=== PATIENT | male | born 1965 | race Caucasian/White ===

== ENCOUNTER 2020-02-26 09:20 | Inpatient (IN) | payer OTHER, SELFPAY ==
[~2020-02-26] VITALS: Ht 172.7 cm; Wt 121.6 kg
[2020-02-26] VITALS (33 sets, daily range): BP systolic 95–140; BP diastolic 46–86
[~2020-02-26 09:20] MED LIST: ASPI-1822 PO; BENA10TA25 PO; CARB200C7 PO; CARB200T1 PO; LAMO150T PO; PAX10 PO; PRAV20TA2 PO; QUET300T1 PO; THE PO; TOP100 PO; VITAMIN D PO
--- NOTE | 2020-02-26 09:22 | NUR ---
PT [facility] TO ER BED 11
--- NOTE | 2020-02-26 09:23 | NUR ---
DR. MCNEILL EVALUATING PT AT BEDSIDE. PER DR. MCNEILL, MOVE PT TO BED 10. PER EMS, PT SATURATES 89% RA. EMS INSERTED RIGHT NPA AND STARTED 6L O2. PT SATURATING 95% AT THIS TIME ON 6L O2.
--- NOTE | 2020-02-26 09:23 | NUR ---
PT MOVED TO ER BED 10
--- NOTE | 2020-02-26 09:30 | NUR ---
PT BIBA ALOC. PT HAD A SEIZURE SINCE YESTERDAY. HAS BEEN ALOC UNKNOWN TIME YESTERDAY. NO VISIBLE TRAUMA. BOARD AND CARE GAVE SEIZURE MEDS YESTERDAY UNKNOWN AMOUNT. PT IS DIFFICULT TO AOURSE BUT WITHDRAWS TO PAIN. PRESENTED WITH URINARY INCONTENICE. BRUSING AND SWELLING TO LT FOOT. WARM TO TOUCH. PMHX: SEIZURES, CKD, HLD, HTN, INTELLECTUAL DISABILITY NKA, NKDA
[2020-02-26] MEDS ORDERED: ACET-2619 PO (09:32)
[2020-02-26] MEDS ORDERED: QUET200T PO (09:32)
[2020-02-26] MEDS ORDERED: VITA1TAB44 PO (09:32)
[2020-02-26] MEDS ORDERED: TRAZ-343 PO (09:32)
[2020-02-26] MEDS ORDERED: CYAN100T65 PO (09:32)
[2020-02-26] MEDS ORDERED: FENO145T PO (09:32)
--- NOTE | 2020-02-26 09:37 | NUR ---
AMBULATORY SERVICE REPRESENTATIVE AT BEDSIDE FOR BLOOD DRAW.
--- NOTE | 2020-02-26 09:38 | NUR ---
URINE VIA STRAIGHT CATH AND COVID SWAB VIA METAL TANK ERECTOR COLLECTED BY MARISEL WRIGHT RN AND HANDED TO ASSEMBLY HAND AT BEDSIDE
--- NOTE | 2020-02-26 09:43 | NUR ---
RT AT BEDSIDE FOR ABG
--- NOTE | 2020-02-26 09:45 | NUR ---
NOTIFIED DR. MCNEILL OF HR. RECEIVED ORDERS FOR 1L NS. NO DIALYSIS CATH OR SHUNTS SEEN.
[2020-02-26] MEDS ORDERED: NACL 0.9% 1,000 ML IV ONE ×3 (09:50→10:20)
[2020-02-26 09:55] LABS: APPEARANCE,URINE HAZY (CLEAR); BILIRUBIN,URINE NEGATIVE (NEGATIVE); BLOOD, URINE 2+ (NEGATIVE); COLOR,URINE YELLOW (YELLOW); EOSINOPHILS % (AUTO) 0.2 % (0.0-4.0); HEMATOCRIT 38.6 % (36-52); HEMOGLOBIN 12.7 g/dL (12.0-18.0); LEUKOCYTE ESTERASE ,URINE NEGATIVE (NEGATIVE); LYMPHOCYTES # (AUTO) 0.5 K/uL (2.0-11.5); LYMPHOCYTES % (AUTO) 5.7 % (20.5-51.1); MEAN CORPUSCULAR HEMOGLOBIN 30 pg (27-31); MEAN CORPUSCULAR HGB CONC 33 g/dL (33-37); MEAN CORPUSCULAR VOLUME 90.3 fL (80-94); MONOCYTES # (AUTO) 0.8 K/uL (0.8-1.0); MONOCYTES % (AUTO) 8.6 % (1.7-9.3); NEUTROPHILS # (AUTO) 8.1 K/uL (1.8-7.7); NEUTROPHILS % (AUTO) 85.5 % (42.2-75.2); NITRITE, URINE NEGATIVE (NEGATIVE); PLATELET COUNT (AUTO) 254 K/uL (140-450); RED BLOOD CELL COUNT(AUTO) 4.28 MIL/uL (4.20-6.10); RED CELL DISTRIBUTION WIDTH 13.4 % (11.6-13.7); UGLUCOSE NEGATIVE (NEGATIVE); WHITE BLOOD COUNT (AUTO) 9.5 K/uL (4.8-10.8)
--- NOTE | 2020-02-26 10:05 | NUR ---
PT PLACED ON 12L NONREBREATHER, DR. MCNEILL AWARE.
[2020-02-26 10:08] LABS: RBC,URINE 11-20 (MOD) /HPF (0-5); WBC,URINE 0-5 /HPF (0-5)
[2020-02-26 10:09] LABS: URINE AMORPHOUS URATE 1+ /HPF (None Seen)
[2020-02-26 10:10] LABS: ALBUMIN 3.6 g/dL (3.4-5.0); ANION GAP 21.2 (8-16); ASPARTATE AMINOTRANSFERASE 34 U/L (15-37); CARBON DIOXIDE 17.4 mmol/L (21-32); CHLORIDE 109 mmol/L (98-107); CREATININE 1.9 mg/dL (0.6-1.3); GFR ARICAN-AMERICAN 48 mL/min (>90); GLUCOSE 151 mg/dL (74-106); POTASSIUM 3.6 mmol/L (3.5-5.1); SODIUM SERUM 144 mmol/L (136-145); TOTAL BILIRUBIN 0.3 mg/dL (0.0-1.0); UREA NITROGEN, BLOOD 23 mg/dL (7-18)
[2020-02-26 10:14] LABS: BARBITURATE, URINE NEGATIVE ng/ml (NEG <=200); BENZODIAZEPINE, URINE NEGATIVE ng/mL (NEG <=200); CANNABINOID, URINE NEGATIVE ng/mL (NEG <=50); COCAINE, URINE NEGATIVE ng/mL (NEG <=300); PHENCYCLIDINE SCREEN,URINE NEGATIVE ng/mL (NEG <=25); SALICYLATE < 2.8 mg/dL (2.8-20.0)
[2020-02-26 10:15] LABS: OPIATE, URINE NEGATIVE ng/mL (NEG <=2000)
[2020-02-26 10:16] LABS: ACETAMINOPHEN < 0.5 ug/ml (10-30)
--- NOTE | 2020-02-26 10:17 | NUR ---
CRITICAL LAB VALUE: LACTIC ACID 8.5 DR MCNEILL NOTIFIED.
[2020-02-26] MEDS ORDERED: PIPERACILLIN/TAZOBACTAM 4.5 GM in DEXTROSE 5% 100 ML IV ONE (10:20)
[2020-02-26] MEDS ORDERED: VANCOMYCIN 1,000 MG in DEXTROSE 5% 250 ML IV ONE (10:20)
[2020-02-26] MEDS ORDERED: VANCOMYCIN 1,000 MG VIAL ONE (10:25)
[2020-02-26] MEDS ORDERED: PIPERACILLIN/TAZOBACTAM 4.5 GM VIAL IV ONE (10:25)
--- NOTE | 2020-02-26 10:26 | NUR ---
CLINICAL QUALITY ASSURANCE SPECIALIST AT BEDSIDE
[2020-02-26 10:37] LABS: CKMB RELATIVE INDEX 0.2 (0.0-2.5); CREATINE KINASE MB 5.1 ng/mL (0-3.6)
--- NOTE | 2020-02-26 10:42 | NUR ---
PER CT DEPT, PT IS UNCOOPERATIVE DURING CT SCAN. PER DR. MCNEILL, JUST BRING THE PT BACK TO ER--REVENUE INVESTIGATOR NOTIFIED.
--- NOTE | 2020-02-26 10:45 | NUR ---
PT BACK FROM CT SCAN VIA JESSICA
--- NOTE | 2020-02-26 11:24 | NUR ---
PT PULLED OUT RIGHT NARE NPA. REMAINS ON 12 NRB, SATURATING 99%.
--- NOTE | 2020-02-26 11:27 | NUR ---
SLAB GRINDER AT BEDSIDE
--- NOTE | 2020-02-26 11:35 | NUR ---
DR. MCNEILL AT BEDSIDE --PT MAY BE HAVING POSSIBLE SZ. FACIAL SPASMS AND GAZE DEVIATION TO LEFT. VSS.
[2020-02-26] MEDS ORDERED: LORazepam 2 MG/ML VIAL ONE (11:38)
[2020-02-26] MEDS ORDERED: LORazepam 2 MG/ML VIAL IVP ONE (11:40)
--- NOTE | 2020-02-26 12:08 | NUR ---
CT CALLED TO COME TAKE PT TO CT. PT IS CALMLY RESTING IN BED AT THIS TIME.
--- NOTE | 2020-02-26 12:21 | NUR ---
[employer] ([employer]) CALL BACK NUMBER [phone], WANTS UPDATES ON THE PATIENT WHEN POSSIBLE
[2020-02-26] MEDS ORDERED: ETOMIDATE 20 MG/10 ML VIAL IVP ONE (13:05)
[2020-02-26] MEDS ORDERED: ROCURONIUM 50 MG/5 ML VIAL IV ONE (13:05)
[2020-02-26] MEDS ORDERED: INTUBATION KIT MC ONE (13:09)
[2020-02-26] MEDS ORDERED: PROPOFOL 1000 MG/100 ML PREMIX 100 ML IV ONE ×2 (13:10→13:11)
--- NOTE | 2020-02-26 13:10 | NUR ---
RECEIVED PT BEDSIDE ER DR MCNEILL READY TO INTUBATE PT INTUBATED WITH 7.5 24 CM GUM LINE BREATH SOUNDS PRESENT BILAT CLEAR X RAY DONE ETT PLACEMENT ADEQUATE SXN PT FOR SPUTUM SENT TO LAB PT ON VENT SETTINGS CHARTED AMBU BAG AT BEDSIDE VENT PLUGGED INTO RED OUTLET WILL CONTINU TO MONITOR PT ON VENT
--- NOTE | 2020-02-26 13:12 | NUR ---
PHYSICIAN INTUBATING AT THIS TIME
--- NOTE | 2020-02-26 13:30 | NUR ---
DR. MCNEILL INTUBATED PT USING 7.5 ETT TAPED 24 AT THE TEETH. RT AT BEDSIDE. PT TOLERATED WELL. VSS, REMAINS ON BEDSIDE MONITOR.
--- NOTE | 2020-02-26 13:32 | NUR ---
OG TUBE INSERTED BY DR. MCNEILL AT BEDSIDE.
--- NOTE | 2020-02-26 13:39 | NUR ---
BODY WEIGHT OF 136 KG USED TO TITRATE PROPOFOL DRIP.
--- NOTE | 2020-02-26 13:39 | NUR ---
XRAY AT BEDSIDE TO CONFIRM ETT PLACEMENT
--- NOTE | 2020-02-26 13:41 | NUR ---
PER DR MCNEILL TITRATE TO -3 ON RASS
--- NOTE | 2020-02-26 13:50 | NUR ---
WAITING FOR RT TO COME TO ASSIST WITH TAKING PT TO CT
--- NOTE | 2020-02-26 14:10 | NUR ---
jeny to CT accompanied by myself, Joyce Rn, RT, and formulation technician
--- NOTE | 2020-02-26 14:25 | NUR ---
pt back from CT accompanied by myself, Joyce Marmolejo, RT, and screen making technician
--- NOTE | 2020-02-26 14:42 | NUR ---
DR. ALBRIGHT EVALUATING PT AT BEDSIDE
[2020-02-26] MEDS ORDERED: ACETAMINOPHEN 325 MG TAB PO PRN (14:50)
[2020-02-26] MEDS ORDERED: VANCOMYCIN PER PHARMACY MC PRN (14:50)
[2020-02-26] MEDS ORDERED: MORPHINE SULFATE 2 MG/ML SYR IVP PRN (14:50)
[2020-02-26] MEDS ORDERED: ALBUTEROL 0.083% 2.5 MG/3 ML NEBU INH PRN (14:50)
[2020-02-26] MEDS ORDERED: ONDANSETRON 4 MG/2 ML VIAL IVP PRN (14:50)
--- NOTE | 2020-02-26 15:23 | NUR ---
RED, CAREGIVER ([phone]) CALLED FOR AN UPDATE ON PT. CAREGIVER NOTIFIED ON PROGRESS. CAREGIVER GAVE ADMINSTRATOR NUMBER (MS. CUNNINGHAM [phone]) FROM [facility].
[2020-02-26 15:59] LABS: CREATINE KINASE MB 5.5 ng/mL (0-3.6)
--- NOTE | 2020-02-26 16:02 | NUR ---
RT AT BEDSIDE
--- NOTE | 2020-02-26 16:10 | NUR ---
PT LEFT FOOT PLACED IN SHORT POSTERIOR SPLINT FABERCATED OUT OF 3" FIBERGLASS SPLINT AND WRAPPED WITH X3 3" SALAZAR WRAPS. PT PMS WNL BEFORE AND AFTER, NOTIFIED.
--- NOTE | 2020-02-26 16:18 | NUR ---
Patient will be admitted to care of DR. ALBRIGHT. Admited to ICU 8. Will go to room 8. Belongings list completed. Report to VARSHA MCGUIRE.
--- NOTE | 2020-02-26 16:30 | NUR ---
PT RECEIVED FROM ER AT THIS TIME. PT AAOX1 SEDATED AT RASS -3 WITH PROPOFOL INFUSING. DRY WEIGHT 136KG. RESPIRATIONS EVEN AND UNLABORED ON ETT TO VENT FIO2 60%, TV 500, PEEP 5, FLOW 50, RR 12, DIMINISHED BREATH SOUNDS. SINUS TACHY ON HEART MONITOR. DROPLET PRECAUTIONS IN PLACE FOR R/O COVID. MULTIPLE METATARSAL FRACTURE TO LEFT FOOT, SKIN INTACT, CAST IN PLACE. R HAND 22G IN PLACE PATENT AND ASYMPTOMATIC INFUSING PER ORDER. BUNDY IN PLACE. OGT IN PLACE, NPO STATUS. SEIZURE PRECAUTIONS IN PLACE. WILL CONTINUE TO MONITOR.
[2020-02-26] MEDS: DEXT 5% /NACL 0.9% 1,000 ML IV SCH (17:00)
[2020-02-26] MEDS: PROPOFOL 1000 MG/100 ML PREMIX 100 ML IV PRN ×2 (17:24→19:21)
--- NOTE | 2020-02-26 17:35 | NUR ---
MEDICATIONS ADMINISTERED PER ORDER.
[2020-02-26] MEDS: levETIRAcetam 1,000 MG in NACL 0.9% 100 ML IV SCH ×2 (17:50→20:20)
[2020-02-26] MEDS ORDERED: ALBUTEROL HFA MDI 90 MCG/ACTUATION 8 GM INH PRN (18:30)
[2020-02-26] MEDS ORDERED: IPRATROPIUM 0.02% 0.5 MG/2.5 ML NEBU INH SCH (19:00)
[2020-02-26] MEDS ORDERED: ALBUTEROL 0.083% 2.5 MG/3 ML NEBU INH SCH (19:00)
--- NOTE | 2020-02-26 19:25 | NUR ---
REPORT GIVEN TO NIGHT NURSE FOR CONTINUITY OF CARE.
--- NOTE | 2020-02-26 19:30 | NUR ---
LAST PICC LINE NURSE PLACED RT UPPER ARM PICC SUCCESSFULLY AND VERIFIED VIA X-RAY. OKAY TO USE.
--- NOTE | 2020-02-26 19:30 | NUR ---
RECEIVED REPORT FROM DAYSIAFT NURSE FOR CONTINUITY OF CARE. A/O X1. RASS -1 PER MD ORDERS. DRY WEIGHT 136KG. RESPONDS TO NAME. 3MM PUPILS, PERRL. ETT TO VENT WITH SETTINGS FOLLOWS: ACVC: FI02 60% TV 500, RT 12, PEEP 5. OGT IN PLACE, PT REMAINS NPO AT THIS TIME. + S1, S2 UPON AUSCULTATION. LUNG SOUNDS DIMINISHED THROUGHOUT TO INSPIRATION/EXPIRATION. BOWEL SOUNDS ACTIVE X4. ABD SOFT, NON-TENDER, NON-DISTENDED. BUNDY IN PLACE DRAINING CLEAR, YELLOW URINE TO GRAVITY. 22G SALINE LOCK TO RT HAND INFUSING PROPOFOL @ 25 MCG/KG/MIN (20.4 ML/HR) AND D5 1/2 NS @ 80ML/HR. IMMOBILIZATION SPLINT NOTED TO LT ANKLE/FOOT. PEDAL PULSES PALPABLE BILATERALLY. CAP REFILL WITHIN 3 SEC TO BUE/BLE. SKIN WARM, DRY, AND INTACT. PT REMAINS ON SOFT WRIST RESTRAINTS D/T ATTEMPTING TO REMOVE ETT. BED LOW AND LOCKED WITH CALL LIGHT WITHIN EASY REACH. SEIZURE PRECAUTIONS REMAIN IN PLACE. LAST PICC LINE NURSE AT BEDSIDE TO PLACE PICC TO [facility]. WILL FOLLOW-UP.
--- NOTE | 2020-02-26 19:55 | NUR ---
RECEIVED PT ON DOCUMENTED SETTING. VENT PLUGGED INTO RED OUTLET. BMV AT BEDSIDE. ETT SECURED AND INTACT. ALARMS SET. PT IS CURRENTLY GETTING A CENTRAL LINE PLACED. PT APPEARS IN NO DISTRESS. WILL CONT TO MONITOR
[2020-02-26] MEDS: PIPERACILLIN/TAZOBACTAM 2.25 GM in DEXTROSE 5% 50 ML IV SCH (20:20)
--- NOTE | 2020-02-26 22:00 | NUR ---
REPOSITIONED PT WITH PRESSURE AREAS OFFLOADED. VAP ORAL CARE PROVIDED. SAFETY/SEIZURE PRECAUTIONS IN PLACE. WILL CONT TO MONITOR.
[2020-02-26] MEDS: VANCOMYCIN 750 MG in DEXTROSE 5% 250 ML IV SCH (22:51)
[2020-02-27] VITALS (106 sets, daily range): BP systolic 82–162; BP diastolic 24–104
--- NOTE | 2020-02-27 | NUR ---
RASS -1, PER MD ORDERS. FLACC 0. SAFETY/SEIZURE PRECAUTIONS IN PLACE. WILL CONT TO MONITOR FOR CHANGES.
--- NOTE | 2020-02-27 01:08 | NUR ---
TITRATED FI02 TO 40%. SATURATION IS STILL GOOD. PT IS IN NO DISTRESS. WILL CONT TO MONITOR
--- NOTE | 2020-02-27 02:00 | NUR ---
CATH CARE PROVIDED. REPOSITIONED WITH PRESSURE AREAS OFFLOADED. FLACC 0. SAFETY/SEIZURE PRECAUTIONS IN PLACE. WILL CONT TO MONITOR.
[2020-02-27] MEDS: PROPOFOL 1000 MG/100 ML PREMIX 100 ML IV PRN ×2 (03:02→07:58)
[2020-02-27] MEDS: DEXT 5% /NACL 0.9% 1,000 ML IV SCH ×2 (03:20→13:33)
--- NOTE | 2020-02-27 04:00 | NUR ---
VAP ORAL CARE PROVIDED. BED BATH ADMINISTERED. FLACC 0. REPOSITIONED WITH PRESSURE AREAS OFFLOADED. SAFETY/SEIZURE PRECAUTIONS IN PLACE. WILL CONT TO MONITOR FOR CHANGES.
[2020-02-27] MEDS: PIPERACILLIN/TAZOBACTAM 2.25 GM in DEXTROSE 5% 50 ML IV SCH ×3 (04:17→21:24)
--- NOTE | 2020-02-27 05:47 | NUR ---
PT REMAINS ON DOCUMENTED SETTINGS. ETT SECURED AND INTACT. PATENT AIRWAY. PT IS IN NO DISTRESS. WILL CONT TO MONITOR
[2020-02-27 06:09] LABS: BASOPHILS % (AUTO) 0.3 % (0.0-2.0); EOSINOPHILS # (AUTO) 0.1 K/uL (0-0.4); EOSINOPHILS % (AUTO) 0.7 % (0.0-4.0); HEMATOCRIT 33.2 % (36-52); HEMOGLOBIN 11.3 g/dL (12.0-18.0); LYMPHOCYTES # (AUTO) 0.7 K/uL (2.0-11.5); LYMPHOCYTES % (AUTO) 8.8 % (20.5-51.1); MEAN CORPUSCULAR HEMOGLOBIN 31 pg (27-31); MEAN CORPUSCULAR HGB CONC 34 g/dL (33-37); MEAN CORPUSCULAR VOLUME 89.8 fL (80-94); MONOCYTES # (AUTO) 0.7 K/uL (0.8-1.0); MONOCYTES % (AUTO) 9.1 % (1.7-9.3); NEUTROPHILS # (AUTO) 6.5 K/uL (1.8-7.7); NEUTROPHILS % (AUTO) 81.1 % (42.2-75.2); PLATELET COUNT (AUTO) 193 K/uL (140-450); RED CELL DISTRIBUTION WIDTH 13.3 % (11.6-13.7)
[2020-02-27 06:34] LABS: ANION GAP 11.7 (8-16); CARBON DIOXIDE 24.7 mmol/L (21-32); CREATININE 1.3 mg/dL (0.6-1.3); POTASSIUM 3.4 mmol/L (3.5-5.1); TOTAL BILIRUBIN 0.7 mg/dL (0.0-1.0)
[2020-02-27 06:36] LABS: PHOSPHORUS 2.1 mg/dL (2.5-4.9)
[2020-02-27 06:46] LABS: CREATINE KINASE MB 2.4 ng/mL (0-3.6)
--- NOTE | 2020-02-27 07:10 | NUR ---
RECEIVED REPORT FROM NIGHT NURSE. PT IN BED, HOB ELEVATED 30 DEG, RESPIRATIONS EVEN AND UNLABORED VIA ETT TO VENT IN ACVC MODE FIO2 40%, TV 500, RR 12, FLOW 50, PEEP 5. PT SEDATED AT RASS -1 ON PROPOFOL RUNNING AT 25MCG. OGT IN PLACE, AUSCULTATED AND IN PLACE, NPO STATUS. BUNDY IN PLACE. SKIN INTACT. IMMOBILIZATION SPLINT TO LEFT FOOT FOR FRACTURE OF METATARSALS 1-4. R UA PICC IN PLACE INFUSING PER ORDER PATENT AND ASYMPTOMATIC. R HAND 20G IN PLACE PATENT AND ASYMPTOMATIC SALINE LOCKED. DROPLET PRECAUTIONS IN PLACE FOR R/O COVID. DRY WEIGHT 136KG. SAFETY MEASURES IN PLACE, WILL MONITOR CLOSELY.
[2020-02-27] MEDS ORDERED: ENOXAPARIN 40 MG/0.4 ML SYR SUBQ SCH (09:00)
[2020-02-27] MEDS: levETIRAcetam 1,000 MG in NACL 0.9% 100 ML IV SCH ×2 (09:30→21:25)
--- NOTE | 2020-02-27 09:40 | NUR ---
KEPPRA ADMINISTERED PER ORDER. PT REPOSITIONED, VAP ORAL CARE GIVEN. NO DISTRESS NOTED. RESPIRATIONS EVEN AND UNLABORED, NO RESPIRATORY DISTRESS NOTED.
[2020-02-27] MEDS ORDERED: DEXMEDETOMIDINE HCL 200 MCG in NACL 0.9% 48 ML IV PRN (11:15)
[2020-02-27] MEDS ORDERED: POTASSIUM CHLORIDE 20% 40 MEQ/15 ML UDC GT SCH (11:30)
--- NOTE | 2020-02-27 11:48 | NUR ---
PER DR FAYE, PT TO DO CPAP TRIALS. TITRATE OFF PROPOFOL AND START LEVOPHED.
[2020-02-27] MEDS ORDERED: PROPOFOL 1000 MG/100 ML PREMIX 100 ML IV ONE (12:25)
--- NOTE | 2020-02-27 12:48 | NUR ---
MEDICATIONS ADMINISTERED PER ORDER, PT TOLERATED WELL. NO RESPIRATORY DISTRESS NOTED AT THIS TIME. VAP ORAL CARE GIVEN. BUNDY CARE GIVEN. PT REPOSITIONED AT THIS TIME.
--- NOTE | 2020-02-27 14:15 | NUR ---
PT STARTED ON PRECEDEX.
[2020-02-27] MEDS: DEXMEDETOMIDINE HCL 200 MCG in NACL 0.9% 48 ML IV PRN ×5 (14:16→23:27)
--- NOTE | 2020-02-27 16:14 | NUR ---
TEMP 99.3. PT REPOSITIONED. VAP ORAL CARE GIVEN. NO RESPIRATORY DISTRESS NOTED.
[2020-02-27] MEDS: LORazepam 2 MG/ML VIAL IVP PRN ×2 (17:20→17:44)
[2020-02-27] MEDS: VANCOMYCIN 750 MG in DEXTROSE 5% 250 ML IV SCH (17:43)
--- NOTE | 2020-02-27 18:24 | NUR ---
PT REPOSITIONED AT THIS TIME. NO DISTRESS NOTED.
--- NOTE | 2020-02-27 19:38 | NUR ---
RECEIVED PT FROM DAY SHIFT ON DOCUMENTED SETTINGS. VENT PLUGGED INTO RED OUTLET. BMV AT BEDSIDE. ETT SECURED AND INTACT. ALARMS AUDIBLE AND FUNCTIONAL. PT IS AGITATED. RN BEN AWARE. PT IS IN NO RESPIRATORY DISTRESS. WILL CONT TO MONITOR
--- NOTE | 2020-02-27 19:38 | NUR ---
BEDSIDE REPORT RECEIVED AM SHIFT RN. PT AWAKE, PRECEDEX DRIP RAN OUT. WILL MIX NEW BAG OF PRECEDEX. IV SITE GURMEET PICC, PATENT, INTACT. R HAND 22 GAUGE, INTACT, PATENT. ETT TO VENT. AC/VC MODE. FIO2 40%, RATE 12, PEEP 5. SR ON MONITOR. OGT IN PLACE. SEIZURE PRECAUTIONS IN PLACE. DRY WEIGHT 136 KG. BUNDY CATHETER IN PLACE, PINK TINGED URINE DRAINING. CAST ON LEFT FOOT, INTACT. HOB 30 DEGREES. BED LOCKED IN LOWEST POSITION. WILL CONTINUE TO MONITOR.
--- NOTE | 2020-02-27 19:43 | NUR ---
MIXED NEW BAG OF PRECEDEX. PT RASS -2. DRY WEIGHT 136 KG. PT ON BILAT, SOFT WRIST RESTRAINTS. NO SKIN BREAKDOWN NOTED. WILL CONTINUE TO MONITOR.
--- NOTE | 2020-02-27 21:00 | NUR ---
SCHEDULED MEDICATIONS GIVEN. PT PULLED OUT R HAND IV, CATHETER INTACT. GAUZE APPLIED TO SITE. MINIMAL BLEEDING NOTED. WILL CONTINUE TO MONITOR.
--- NOTE | 2020-02-27 22:00 | NUR ---
PT HAD 1 BOWEL MOVEMENT, PT CLEANED, REPOSITIONED. WILL CONTINUE TO MONITOR.
--- NOTE | 2020-02-27 23:27 | NUR ---
PT RASS -3. DECREASED PRECEDEX DIRP TO 0.6 MCG/KG/MIN. WILL CONTINUE TO MONITOR.
--- NOTE | 2020-02-27 23:45 | NUR ---
PT HAD EPISODE OF BRADYCARDIA HEART RATE 44. HELD PRECEDEX. STIMULATED PT, STERNAL RUB. HEART GOING UP TO 55. CALLED DR FAYE, ORDERS TO KEEP OFF PRECEDEX AND ATIVAN 1MG Q2H FOR AGITATION. IF UNABLE TO CONTROL, CAN PUT BACK ON PROPOFOL.
[2020-02-28] VITALS (107 sets, daily range): BP systolic 96–169; BP diastolic 26–133
[2020-02-28] MEDS: LORazepam 2 MG/ML VIAL IVP PRN (00:28)
--- NOTE | 2020-02-28 00:28 | NUR ---
PT AGITATED. 1 MG OF ATIVAN GIVEN. WILL CONTINUE TO MONITOR.
[2020-02-28] MEDS ORDERED: PROPOFOL 1000 MG/100 ML PREMIX 100 ML IV ONE (00:34)
[2020-02-28] MEDS: PROPOFOL 1000 MG/100 ML PREMIX 100 ML IV PRN ×7 (00:45→23:15)
--- NOTE | 2020-02-28 00:45 | NUR ---
PROPOFOL DRIP STARTED. DRY WEIGHT 136 KG. GOAL IS RASS -2. WILL CONTINUE TO MONITOR.
--- NOTE | 2020-02-28 01:40 | NUR ---
PT AGITATED. SX MODERATE AMOUNT OF THICK YELLOW CREAMY SECRETION. WILL CONT TO MONITOR
[2020-02-28] MEDS: DEXT 5% /NACL 0.9% 1,000 ML IV SCH ×2 (03:46→16:50)
--- NOTE | 2020-02-28 03:52 | NUR ---
PT SEDATED RASS -2. EYES CLOSED, RESPIRATIONS EVEN AND UNLABORED. SAFETY PRECAUTIONS IN PLACE. WILL CONTINUE TO MONITOR.
[2020-02-28] MEDS: PIPERACILLIN/TAZOBACTAM 2.25 GM in DEXTROSE 5% 50 ML IV SCH ×3 (04:59→21:37)
--- NOTE | 2020-02-28 05:00 | NUR ---
HEMATURIA IN THE BUNDY CATHETER. HEPARIN SUBQ HELD, NOT GIVEN.
--- NOTE | 2020-02-28 05:30 | NUR ---
PT SATURATION TO 86%. RT AT BEDSIDE. FIO2 INCREASED TO 50%. Addendum: 02/28/20 at 0532 by Tamir Khanna RN SATURATION AT 93% NOW.
--- NOTE | 2020-02-28 05:42 | NUR ---
PT REMAINS ON DOCUMENTED SETTINGS. INC 02 TO 50% DUE TO DESATURATION. ETT SECURED AND INTACT. ALARMS FUNTIONAL. PATENT AIRWAY. PT IS IN NO DISTRESS. WILL CONT TO MONITOR
--- NOTE | 2020-02-28 07:15 | NUR ---
BEDSIDE REPORT GIVEN TO AM SHIFT RN FOR CONTINUITY OF CARE.
--- NOTE | 2020-02-28 07:30 | NUR ---
RECEIVED BEDSIDE REPORT FROM CASSANDRA DEVELOPER RN. PT IS SEDATED, RASS -2. AFEBRILE. FLACC 0. NORMAL SINUS RHYTHM ON MONITOR. S1 S2 HEARD. CAP REFILL < 3 SEC. PULSES PALPABLE TO ALL EXTREMITIES. ETT TO VENT: A/C VC FIO2 50%, VT 500, RR 12, PEEP 5. LUNGS SOUND CLEAR BILATERALLY. BREATHING EVEN AND UNLABORED. ABDOMEN SOFT, NONTENDER W/ ACTIVE BOWEL SOUNDS. OGT IN PLACE, PLACEMENT CONFIRMED. PICC LINE TO GURMEET PATENT AND INTACT, RUNNING PROPOFOL DRIP AT 30 MCG/KG/MIN (DRY WEIGHT 136 KG), AND IVF D5NS AT 80 ML/HR. BUNDY CATH IN PLACE DRAINING PINK TINGED URINE TO GRAVITY. CAST IN PLACE ON LEFT FOOT. HOB 30 DEGREES, BED IN LOWEST POSITION LOCKED, CALL LIGHT WITHIN REACH. NO SIGNS OF DISTRESS AT THIS TIME. WILL CONTINUE TO MONITOR.
--- NOTE | 2020-02-28 07:47 | NUR ---
PATIENT HAS BEEN SCREENED AND CATEGORIZED HIGH NUTRITION RISK. PATIENT WILL BE SEEN WITHIN 1-2 DAYS OF ADMISSION. 02/27/20-02/28/20 ANA GOMEZ MS, RDN
[2020-02-28 08:09] LABS: BASOPHILS % (AUTO) 0.3 % (0.0-2.0); EOSINOPHILS # (AUTO) 0.1 K/uL (0-0.4); EOSINOPHILS % (AUTO) 0.7 % (0.0-4.0); HEMATOCRIT 31.8 % (36-52); HEMOGLOBIN 10.9 g/dL (12.0-18.0); LYMPHOCYTES % (AUTO) 12.4 % (20.5-51.1); MEAN CORPUSCULAR HEMOGLOBIN 31 pg (27-31); MEAN CORPUSCULAR HGB CONC 34 g/dL (33-37); MEAN CORPUSCULAR VOLUME 89.8 fL (80-94); MONOCYTES # (AUTO) 0.8 K/uL (0.8-1.0); NEUTROPHILS # (AUTO) 6.3 K/uL (1.8-7.7); NEUTROPHILS % (AUTO) 76.6 % (42.2-75.2); PLATELET COUNT (AUTO) 192 K/uL (140-450); RED BLOOD CELL COUNT(AUTO) 3.55 MIL/uL (4.20-6.10); RED CELL DISTRIBUTION WIDTH 13.4 % (11.6-13.7); WHITE BLOOD COUNT (AUTO) 8.2 K/uL (4.8-10.8)
[2020-02-28 08:18] LABS: ANION GAP 12.8 (8-16); CARBON DIOXIDE 23.8 mmol/L (21-32); CREATININE 1.2 mg/dL (0.6-1.3); POTASSIUM 3.6 mmol/L (3.5-5.1)
--- NOTE | 2020-02-28 09:15 | NUR ---
PT SEEN BY DR. FAYE. UPDATES GIVEN ON PT'S CONDITION. WILL FOLLOW UP WITH ANY NEW ORDERS.
[2020-02-28] MEDS: levETIRAcetam 1,000 MG in NACL 0.9% 100 ML IV SCH ×2 (09:45→21:37)
[2020-02-28] MEDS: FAMOTIDINE 20 MG/2 ML VIAL IV SCH (09:45)
--- NOTE | 2020-02-28 09:45 | NUR ---
MEDICATION ADMINISTERED ORDERED.
--- NOTE | 2020-02-28 09:49 | NUR ---
(02/28/20) RD INITIAL ASSESSMENT COMPLETED PLEASE REFER TO NUTRITION ASSESSMENT UNDER CARE ACTIVITY FOR ESTIMATED NUTRITIONAL NEEDS. RD RECOMMENDATIONS: INITIATE JEVITY 1.2 AT 30 ML/HR UNTIL GOAL RATE OF 50 ML/HR VIA NGT. AT GOAL RATE, JEVITY 1.2 AT 50 ML/HR, TF WILL PROVIDE 1440 KCAL, 66 GM PROTEIN, AND 968 ML FREE WATER. THIS INCLUDES CONSIDERATIONS FOR KCAL PROVIDED BY PROFOFOL. CONTINUE FWF OF 100 ML Q8H TO PROVIDE 300 ML FREE WATER. 4. RD WILL F/U 2-3 DAYS; HIGH RISK. ANA GOMEZ, MS, RDN
[2020-02-28] MEDS: VANCOMYCIN 750 MG in DEXTROSE 5% 250 ML IV SCH ×2 (11:31→18:19)
--- NOTE | 2020-02-28 11:31 | NUR ---
HEPARIN HELD DUE TO HEMATURIA. DR. FAYE AWARE.
--- NOTE | 2020-02-28 12:00 | NUR ---
PT HAD LARGE AMOUNT OF BROWN SOFT BOWEL MOVEMENT. CLEANED AND REPOSITIONED. PT TOLERATED WELL.
--- NOTE | 2020-02-28 12:15 | NUR ---
PLACED PT ON CPAP + 5, PS 14, FIO2 50%, MAINTAINING RATE 25-30 AND VT 500-600 AND SAT 95%. NO SIGNS OF RESPIRATORY DISTRESS. WILL CONTINUE TO MONITOR
--- NOTE | 2020-02-28 14:01 | NUR ---
PT BECAME HIGHLY AGITATED DURING WEANING OF SEDATION AND CPAP TRIALS. RETURNED BACK TO NORMAL SETTINGS. WILL CONTINUE TO MONITOR.
--- NOTE | 2020-02-28 15:02 | NUR ---
PT HAD ANOTHER LARGE BOWEL MOVEMENT. CLEANED AND REPOSITIONED. PRESSURE AREAS OFF LOADED.
--- NOTE | 2020-02-28 16:05 | NUR ---
VAP ORAL CARE GIVEN. SUCTIONED LARGE AMOUNT OF THICK WHITE SECRETIONS. TURNED AND REPOSITIONED. PT STILL ON PROPOFOL DRIP, RASS -2. SAFETY PRECAUTIONS IN PLACE. WILL CONTINUE TO MONITOR.
--- NOTE | 2020-02-28 19:23 | NUR ---
REPORT GIVEN TO INDUSTRIAL SAFETY AND HEALTH MANAGER RN FOR CONTINUITY OF CARE. NO S/SX OF ACUTE DISTRESS NOTED AT THIS TIME.
--- NOTE | 2020-02-28 19:25 | NUR ---
RECEIVED REPROT FROM DAY RN PT ETT TO VENT AC/VC FIO2 50 VT 500 RR 12 PEEP 5, OGT TO FEEDING JEVITY 1.2 AT 30 ML GOAL IS 50 FWF [id number], BUNDY CATHETER IN PLACE DRAINING CLEAR YELLOW URINE, PT HAS GURMEET PICC LINE INFUSING PROPOFOL 30MCG/KG/MIN, D5 NS 85ML/HR, LUNG SOUNDS DIMINSIHED, PULSES PALPABLE UPPER AND RIGHT LOWER EXTREMITY, BOWEL SOUNDS ACTIVE. PT HAS SOFT CAST ON LEFT FOOT TOES ARE WARM, WITH CAP REFILL <3 SECS, NO FACIAL GRIMACE OBSERVED WHEN PALPATING TOES. SAFETY PROTOCOLS IN PLACE, WILL CONTINUE TO MONITOR PT Addendum: 02/28/20 at 2228 by Rosalino Serrato RN RASS -2 DRY WEIGHT 136 KG D5 NS 80ML/HR
--- NOTE | 2020-02-28 20:09 | NUR ---
RECEIVED REPORT FROM AM SHIFT. PATIENT SEEN AND ASSESSED. PATIENT IS INTUBATED WITH ETT SIZE 7.5 AND SECURED WITH ANCHOR-FAST AT 24CM. AUSCULTATION REVEALS BILATERAL COARSE BREATH SOUNDS. NOTICED ADEQUATE BILATERAL CHEST RISE AND FALL. PATIENT ON VENT SETTINGS AC/VC 12, 500, +5, 50% WITH SPO2 OF 97%. VENT PLUGGED IN RED OUTLET, HOB > 30 DEGREES, AMBU BAG AT BEDSIDE, AND ALARMS SET AND AUDIBLE. PATIENT IS IN NO APPARENT RESPIRATORY DISTRESS AT THIS TIME. PRN TX NOT INDICATED AT THIS TIME. SUCTION SMALL YELLOW THICK SECRETIONS FROM ETT. AIRWAY IS PATIENT. WILL CONTINUE TO MONITOR PATIENT.
--- NOTE | 2020-02-28 21:45 | NUR ---
ALL PT MEDS GIVEN PT REPOSITIONED IN BED, RESTRAINTS IN PLACE TO PREVENT PT FROM PULLING TUBE, CIRCULATION CHECKED, WILL CONTINUE TO MONITOR PT
[2020-02-29] VITALS (100 sets, daily range): BP systolic 97–171; BP diastolic 57–149
[2020-02-29] MEDS: DEXT 5% /NACL 0.9% 1,000 ML IV SCH ×2 (00:35→11:14)
--- NOTE | 2020-02-29 00:59 | NUR ---
PT RESTING IN BED WITH EYES CLOSE, HAS INTERMITTENT COUGH WITH COPIOUS AMOUNTS OF ORAL SECRETIONS, PT SUCTIONED AND ORAL CARE PROVIDED WILL CONTINUE TO MONITOR PT Addendum: 02/29/20 at 0102 by Rosalino Serrato RN PT REMAINS SEDATED RASS -2
--- NOTE | 2020-02-29 01:22 | NUR ---
FiO2 TITRATED TO 45% WITH SPO2 OF 93%. WILL CONTINUE TO MONITOR PATIENT.
[2020-02-29] MEDS: VANCOMYCIN 750 MG in DEXTROSE 5% 250 ML IV SCH ×3 (02:31→19:30)
--- NOTE | 2020-02-29 02:31 | NUR ---
CHECKED PT RESIDUALS, RESIDUALS AT 175ML, TUBE FEEDING HELD PER PARAMETERS WILL RECHECK AFTER 1 HR
[2020-02-29] MEDS: PROPOFOL 1000 MG/100 ML PREMIX 100 ML IV PRN ×5 (03:20→21:00)
--- NOTE | 2020-02-29 03:46 | NUR ---
RECHECKED PT RESIDUALS; RESIDUALS AT 0ML RESTARTED FEEDING AT 40ML/HR, WILL CONTINUE TO MONITOR
--- NOTE | 2020-02-29 03:50 | NUR ---
PT HAD BM BROWN SMEAR, CLEANED PT, GAVE BED BATH AND REPOSITIONED PT WILL CONTINUE TO MONITOR PT
[2020-02-29] MEDS: PIPERACILLIN/TAZOBACTAM 2.25 GM in DEXTROSE 5% 50 ML IV SCH ×3 (04:55→20:14)
[2020-02-29 06:01] LABS: BASOPHILS % (AUTO) 0.4 % (0.0-2.0); EOSINOPHILS # (AUTO) 0.2 K/uL (0-0.4); EOSINOPHILS % (AUTO) 2.5 % (0.0-4.0); HEMATOCRIT 31.9 % (36-52); HEMOGLOBIN 10.7 g/dL (12.0-18.0); LYMPHOCYTES # (AUTO) 1.7 K/uL (2.0-11.5); LYMPHOCYTES % (AUTO) 22.9 % (20.5-51.1); MEAN CORPUSCULAR HEMOGLOBIN 30 pg (27-31); MEAN CORPUSCULAR HGB CONC 34 g/dL (33-37); MEAN CORPUSCULAR VOLUME 90.1 fL (80-94); MONOCYTES # (AUTO) 0.8 K/uL (0.8-1.0); MONOCYTES % (AUTO) 10.9 % (1.7-9.3); NEUTROPHILS # (AUTO) 4.6 K/uL (1.8-7.7); NEUTROPHILS % (AUTO) 63.3 % (42.2-75.2); PLATELET COUNT (AUTO) 247 K/uL (140-450); RED BLOOD CELL COUNT(AUTO) 3.54 MIL/uL (4.20-6.10); RED CELL DISTRIBUTION WIDTH 13.2 % (11.6-13.7); WHITE BLOOD COUNT (AUTO) 7.3 K/uL (4.8-10.8)
--- NOTE | 2020-02-29 06:10 | NUR ---
RECHECKED PT RESIDUALS, RESIDUALS AT 210ML, FEEDING HELD AT THIS TIME PER PROTOCOL, WILL CONTINUE TO MONITOR PT
[2020-02-29 06:30] LABS: CARBON DIOXIDE 24.2 mmol/L (21-32); CREATININE 1.1 mg/dL (0.6-1.3); POTASSIUM 3.2 mmol/L (3.5-5.1)
--- NOTE | 2020-02-29 06:36 | NUR ---
PATIENT STILL REMAINS ON VENT SUPPORT. AIRWAY IS PATENT. EQUAL CHEST RISE AND FALL.TUBE IS SECURED AND INTACT. PATIENT IN NO DISTRESS AT THIS TIME. WILL CONTINUE TO MONITOR.
--- NOTE | 2020-02-29 07:28 | NUR ---
ENDORSED PT TO DAY SHIFT RN FOR CONTINUED CARE
--- NOTE | 2020-02-29 07:29 | NUR ---
RECEIVED BEDSIDE REPORT FROM ENAMEL CRACKER NURSE, PT IS SEDATED, RASS -2, PERRL, VSS, FLACC 0, ETT to VENT WITH AC FIO2 45%, VT 500, R 12, PEEP 5, NO S/S OF DISTRESS, DIMINISHED LUNG SOUNDS PAT. SR ON NUT FEEDER, LARGE ROUND ABDOMEN WITH HYPOACTIVE BOWEL SOUNDS, OGT IN PLACE, FEEDING ON HOLD AT THIS TIME DUE TO 80 ML OF RESIDUALS, BUNDY CATHETER IN PLACE WITH SEDIMENT YELLOW URINE VIA GRAVITY, SKIN IS WARM AND DRY TO TOUCH, NO OPEN WOUND, LEFT FOOT FX NOTED WITH CASE IN PLACE, PICC LINE TO RIGHT UPPER ARM, PATENT, RUNNING PROPOFOL AT 30 MCG/KG/MIN, DRY WEIGHT USED 136 KG, AND D5 NS AT 80 ML/HR, PAT. SOFT WRIST RESTRAIN FOR SAFETY, ABLE TO MOVE ALL EXTREMITIES, HOB ELEVATED 30 DEGREES, SAFETY MEASURES IN PLACE, WILL CONTINUE TO MONITOR.
--- NOTE | 2020-02-29 08:50 | NUR ---
STARTED CPAP TRIAL +5, PS 12. 20 MINS POST. AVG RATE OF 25-30, VT 450-500. NO SIGNS OF RESPIRATORY DISTRESS. WILL CONTINUE TO MONITOR.
--- NOTE | 2020-02-29 09:20 | NUR ---
SCHEDULED MEDICATION GIVEN, PATIENT TOLERATED WELL. NO SEIZURE ACTIVITY AT THIS TIME.
[2020-02-29] MEDS: FAMOTIDINE 20 MG/2 ML VIAL IV SCH (09:23)
[2020-02-29] MEDS: levETIRAcetam 1,000 MG in NACL 0.9% 100 ML IV SCH ×2 (09:23→20:16)
--- NOTE | 2020-02-29 09:54 | NUR ---
PT WENT APNEIC WHILE ON CPAP. RETURNED PT BACK TO ORIGINAL SETTING. WILL CONTINUE TO MONITOR.
--- NOTE | 2020-02-29 10:00 | NUR ---
NO S/S OF DISTRESS, VSS, FLACC 0, POSITION CHANGED FOR OFF LOAD PRESSURE.
--- NOTE | 2020-02-29 10:35 | NUR ---
DISCHARGE PLANNING: THIS IS A 54 Y/O MALE PATIENT FROM [facility], WHO WAS BIBA DUE TO ALTERED MENTAL STATUS. PAST MEDICAL HISTORY INCLUDE HTN, SEIZURES. INITIAL DIAGNOSIS OF ENCEPHALOPATHY. CURRENT LABS INCLUDE WBC 7.3, H/H 10.7/31.9, NA/K 144/3.2, BUN/CREA 10/1.1. COVID NEGATIVE X2. ON ETT TO VENT , FIO2 45%, O2 SAT 97%. ON PROPOFOL DRIP. ON VANCOMYCIN AND ZOSYN. ON KEPPRA IV. NO MRSA. BLOOD CS NO GROWTH AFTER 48 HOURS. URINE CS NO GROWTH. SEEN BY NEURO - CONTINUE SHARI, RECOMMENDED NGT AND TO START ON LAMICTAL, CARBAMAZEPINE AND TOPAMAX. SEEN BY PULMO - CPAP TRIAL. DC PLAN PENDING ON PATIENT'S RESPONSE TO TREATMENT. Addendum: 03/01/20 at 0907 by Stacey Weinberg CM RECEIVED AN ORDER FOR [facility] EVAL. [facility] MADE AWARE. REFERRAL SENT TO [facility]. Addendum: 03/01/20 at 0917 by Stacey Weinberg CM MAHI RAMOS [facility] MADE AWARE, SHE STATED SHE CONTACTED [facility] ALREADY AND JUST WAITING FOR THEIR TYPE ROLLING MACHINE OPERATOR TO APPROVE IT AND WILL SEND AUTH FOR SAURABH MACDONALD AND TRANSPORT AUTH. CLINICALS FAXED TO [facility] AND [facility]. Addendum: 03/01/20 at 1121 by Stacey Weinberg CM PER JP, HE RECEIVED THE REFERRAL AND JUST WAITING FOR [facility] TO PROVIDE AUTH. MAHI RAMOS [facility] MADE AWARE. Addendum: 03/01/20 at 1148 by Stacey Weinberg CM [facility] AT [phone], ABLE TO SPEAK TO RED DUGAN. SHE STATED TO CALL THEIR MANAGER [employer] AICHA CUNNINGHAM AT [phone]. CONTACTED THE PROVIDED NUMBER, ABLE TO SPEAK TO AICHA. SHE STATED PATIENT IS NOT CONSERVED AND WITH [facility]. THE LETTERSET PRESS SET UP OPERATOR IS MARYANN ALVARES AT [phone]. SHE PROVIDED ME WITH THE PATIENT'S MOTHER DONALD'S NUMBER [phone], SHE STATED THAT SHE IS ETHIOPIAN SPEAKING. CONTACTED MARYANN ALVARES OF [facility], NO ANSWER LEFT VOICEMAIL. CONTACTED DONALD WITH [employer] 280[employer], LOYDA #[id number] TRANSLATING. ABLE TO SPEAK TO, STATING THAT DONALD IS NOT AVAILABLE AT THIS TIME. REQUESTED FOR DONALD TO CALL ME BACK. PROVIDED HER OF MY CONTACT INFO. Addendum: 03/01/20 at 1318 by Stacey Weinberg CM RECEIVED A CALL BACK FROM MARYANN LETTERSET PRESS SET UP OPERATOR OF [facility], UPDATED HER OF THE PATIENT'S CONDITION AND THE DC PLAN FOR [facility]. SHE STATED THAT PATIENT'S MOTHER IS THE ONE WHO MAKES MEDICAL DECISION FOR THE PATIENT. SHE TRY TO GET A HOLD OF THE PATIENT'S MOTHER AND HAVE HER CALL ME BACK. CONTACTED PATIENT'S MOTHER AGAIN WITH THE HELP OF CANAL DRIVER [facility] #[id number], NO ANSWER. LEFT MESSAGE. RECEIVED A MESSAGE FROM MAHI OF [facility] TO PROVIDE AUTH FOR [place] [id number] AND TRANSPORT AUTH WITH [facility] [id number]. RECEIVED A CALL FROM [facility] THAT PATIENT IS ACCEPTED AT [facility] PENDING PATIENT'S MOTHER'S CONSENT. CHARGE NURSE ERIBERTO MADE AWARE. WILL FOLLOW UP. CONTACTED PATIENT'S MOTHER DONALD AT [phone] WAS PICKED UP BUT IN [place]. INFORMED HER THAT I WILL BE CALLING HER BACK. CONTACTED PATIENT'S MOTHER AGAIN WITH CANAL DRIVER MARBELLA #[id number], LINE IS BUSY 2X. WILL FOLLOW UP. 1303: CONTACTED AICHA CUNNINGHAM OF [facility], SHE STATED SHE WAS ABLE TO GET A HOLD OF THE PATIENT'S MOTHER DONALD AND IS IN AGREEMENT WITH LT. CONTACTED PATIENT'S MOTHER AGAIN WITH CANAL DRIVER RHONA #[id number], NO ANSWER. LEFT A DETAILED MESSAGE REGARDING DC PLAN TO [facility] AND [facility] IS ABLE TO ACCEPT. WILL FOLLOW UP. Addendum: 03/01/20 at 1410 by Stacey Weinberg CM RECEIVED A MESSAGE FROM AICHA CUNNINGHAM OF [facility] [employer] [facility] REGARDING PATIENT'S MOTHER DONALD REQUESTING TO HAVE A 3 WAY CALL WITH HER. RETURNED AICHA'S CALL AND PLACED PATIENT'S MOTHER ON THE OTHER LINE HOWEVER THE LINE IS BUSY. WILL FOLLOW UP. Addendum: 03/01/20 at 1429 by Stacey Weinberg CM CONTACTED AICHA BABIN OF [facility] TO HAVE A 3 WAY CALL WITH THE PATIENT'S MOTHER, STILL BUSY. WILL FOLLOW UP. Addendum: 03/01/20 at 1505 by Stacey Weinberg CM WILL CALL TRANSPORT SET UP WITH [facility] AWARE. Addendum: 03/01/20 at 1605 by Stacey Weinberg CM PER GINARED, PATIENT WILL GO TO [facility] ROOM [address], NUMBER TO CALL FOR REPORT [phone]. [place] SETTER TIME 1929 WITH [facility] AT 1930, PER CHARGE NURSE MADE AWARE. Addendum: 03/01/20 at 1618 by Stacey Weinberg CM CONTACTED PATIENT'S MOTHER DONALD WITH [employer] CANAL DRIVER [employer] #[id number], TO INFORM HER THAT THE PATIENT WILL BE DISCHARGING TONIGHT TO [facility]. SHE STATED THAT AICHA FROM THE FACILITY INFORMED HER AND SHE IS IN AGREEMENT. PROVIDED HER WITH THE ROOM NUMBER, ADDRESS AND PHONE NUMBER OF [place]. SHE WAS VERY APPRECIATIVE.
--- NOTE | 2020-02-29 11:00 | NUR ---
dr. HERNANDEZ COME IN TO SEE PATIENT AT BEDSIDE, UPDATED PATIENT'S CONDITION, NOT READY TO EXTUBATED AT THIS TIME, WILL FOLLOW UP WITH NEW ORDERS.
--- NOTE | 2020-02-29 11:08 | NUR ---
MANAGER DEVELOPMENTAL NOTE: Basic Screen: Yes High Risk DC Screen [place]: RED Home Relationship: SUPPLY CHAIN INTERN Pre-Admission Living Arrangements: Other Other: [facility] Prior ADL Needs Assistance Current Home Health Name/Tel: N/A Current DME/02 Name/Tel: N/A Current Hospice Name/Tel: N/A Current Dialysis Name/Tel: N/A Healthcare Decision Maker: Community/spring encaser Other: [facility] Advance Directive No Physician Orders for Life Sustaining Treatment Form No Patient/Family Have Educational Needs No Discipline: Case Mgt/Social Svcs Tentative Discharge Plan/Destination: No Needs Identified Will require assistance post discharge: No Referred to Optometric Tech: No Tentative Discharge Plan Summary: PATIENT IS 54-YEAR-OLD ADMITTED FOR ENCEPHALOPATHY. PATIENT HAS PMHX OF HYPERTENSION AND SEIZURES. PATIENT WAS ADMITTED FROM [facility]. SW CONTACTED AINSLEY, CAREGIVER OF [facility] [phone]. PER AINSLEY, PATIENT IS ALERT/ORIENTED AT BASELINE. AINSLEY PROVIDED ADDRESS TO FACILITY: [address] [place] [address]. AINSLEY STATED THAT NO FAMILY IS INVOLVED IN PATIENT'S CARE. AINSLEY PROVIDED EMERGENCY CONTACT INFORMATION FOR [place], SUPPLY CHAIN INTERN OF [facility] [phone]. AINSLEY STATED THAT HE ASSISTS PATIENT IWTH PREPARING MEALS AND PROVIDING MEDICATION. AINSLEY REPORTED NO SUBSTANCE ABUSE OR MENTAL HEALTH HISTORY. TENTATIVE DISCHARGE PLAN IS FOR PATIENT TO RETURN TO [facility]. NO FURTHER NEEDS IDENTIFIED. Signature: TIFFANIE AGGARWAL Date: Feb 29, 2020 Time: 11:07
--- NOTE | 2020-02-29 12:00 | NUR ---
TEMP 100.9, TYLENOL GIVEN, NO S/S OF DISTRESS, ORAL CARE PROVIDED, POSITION CHANGED FOR OFF LOAD PRESSURE.
[2020-02-29] MEDS ORDERED: POTASSIUM CHLORIDE 20% 40 MEQ/15 ML UDC GT SCH (13:00)
--- NOTE | 2020-02-29 14:00 | NUR ---
NO CHANGE OF CONDITION, VSS, FLACC 0, POSITION CHANGED FOR OFF LOAD PRESSURE.
[2020-02-29] MEDS ORDERED: CRUSHER, PILL MC ONE (14:41)
[2020-02-29] MEDS: TOPIRAMATE 100 MG TAB NG SCH ×2 (14:44→20:15)
[2020-02-29] MEDS: carBAMazepine 200 MG TAB PO SCH ×2 (14:44→20:15)
--- NOTE | 2020-02-29 16:00 | NUR ---
NO S/S OF DISTRESS, PM AND ORAL CARE PROVIDED, BUNDY CATHETER CARE PROVIDED, POSITION CHANGED FOR OFF LOAD PRESSURE, PATIENT'S HR 55 AT THIS TIME, DR. FAYE MADE AWARE.
--- NOTE | 2020-02-29 16:30 | NUR ---
PATIENT'S HR WENT DOWN TO 40-50'S, A-CRISTEL, DR. SHETTY AT BEDSIDE, STATED IS OK ABOVE 55, IF CONTINUE GOING DOWN, REDUCE PROPOFOL, OR ADD ON FENTANYL DRIP TO SEDATE PATIENT.
[2020-02-29] MEDS ORDERED: fentaNYL 1 MG in NACL 0.9% 80 ML IV PRN (17:40)
[2020-02-29] MEDS ORDERED: fentaNYL citrate - 50mL vial 2.5 MG in NACL 0.9% 200 ML IV PRN (17:50)
--- NOTE | 2020-02-29 18:00 | NUR ---
NO CHANGE OF CONDITION, VSS, FLACC 0, POSITION CHANGED FOR OFF LOAD PRESSURE.
--- NOTE | 2020-02-29 19:21 | NUR ---
REPORT GIVEN TO [facility] SUPERVISOR NURSE FOR CONTINUE OF CARE, PT IS IN STABLE CONDITION AT THIS TIME.
--- NOTE | 2020-02-29 20:00 | NUR ---
PT ETT TO VENT- FIO2 45%, TV 500, PINSP 12, PEEP 5. RESPIRATION EVEN AND UNLABORED. EQUAL CHEST RISE AND FALL. LUNG SOUNDS CLEAR UPON AUSCULTATION. PT SEDATED- RASS -2. PICC LINE ACCESS ON THE RIGHT UPPER ARM INFUSING D5NS @ 50ML/HR, ASYMPTOMATIC AND PATENT. ON PROPOFOL DRIP @ 20MCG/KG/MIN. DRY WEIGHT OF 136 KG. FENTANYL DRIP @ 6.8ML/HR. PT AWAKENS TO VOICE AND TACTILE STIMULI. ON BILATERAL SOFT RESTRAINTS WITH NO INJURIES OBSERVED. SKIN WARM DRY AND INTACT. LEFT FOOT FRACTURE WITH CAST ON. ON BUNDY CATHETER DRAINING TO GRAVITY. ABDOMEN LARGE, ROUND, NON TENDER WITH ACTIVE BOWEL SOUNDS. OGT IN PLACE CLAMPED DUE TO RESIDUAL OF 220ML. SIDE RAILS UP, BED IN LOWEST POSITION. TURNED AND REPOSITIONED. WILL CONTINUE TO MONITOR.
--- NOTE | 2020-02-29 22:00 | NUR ---
PT TURNED AND REPOSITIONED. ORAL CARE, [place] CARE DONE. NO DISTRESS OBSERVED. WILL CONTINUE TO MONITOR.
[2020-03-01] VITALS (72 sets, daily range): BP systolic 88–139; BP diastolic 36–77
--- NOTE | 2020-03-01 00:11 | NUR ---
PT WAS TURNED AND REPOSITIONED. ORAL CARE PERFORMED. RASS -2. NO RESPIRATORY DISTRESS OBSERVED.
--- NOTE | 2020-03-01 02:00 | NUR ---
RESIDUALS CHECKED WITH AN AMOUNT OF 180MLS. OGT STILL CLAMPED. TURNED AND REPOSITIONED AT THIS TIME. WILL CONTINUE TO MONITOR.
[2020-03-01] MEDS: VANCOMYCIN 750 MG in DEXTROSE 5% 250 ML IV SCH (02:58)
[2020-03-01] MEDS: PROPOFOL 1000 MG/100 ML PREMIX 100 ML IV PRN ×2 (02:58→07:30)
[2020-03-01] MEDS: LORazepam 2 MG/ML VIAL IVP PRN ×2 (03:00→20:12)
--- NOTE | 2020-03-01 03:00 | NUR ---
PT O2 SATURATION ON THE 80'S. RT CALLED. INCREASED FIO2 TO 50%. ATIVAN GIVEN ORDERED FOR SIGNS OF AGITATION. WILL CONTINUE TO MONITOR.
[2020-03-01] MEDS: PIPERACILLIN/TAZOBACTAM 2.25 GM in DEXTROSE 5% 50 ML IV SCH ×2 (04:01→12:36)
--- NOTE | 2020-03-01 05:29 | NUR ---
MORNING CARE DONE. PT IN NO DISTRESS OBSERVED. BUNDY CATHETER BAG EMPTIED. SEDATED RASS -2. WILL CONTINUE TO MONITOR.
[2020-03-01 06:19] LABS: ANION GAP 6.7 (8-16); CARBON DIOXIDE 27.4 mmol/L (21-32); CREATININE 1.1 mg/dL (0.6-1.3); POTASSIUM 3.1 mmol/L (3.5-5.1)
[2020-03-01 06:33] LABS: BASOPHILS % (AUTO) 0.3 % (0.0-2.0); EOSINOPHILS # (AUTO) 0.3 K/uL (0-0.4); HEMATOCRIT 29.4 % (36-52); HEMOGLOBIN 9.7 g/dL (12.0-18.0); LYMPHOCYTES # (AUTO) 1.1 K/uL (2.0-11.5); LYMPHOCYTES % (AUTO) 17.1 % (20.5-51.1); MEAN CORPUSCULAR HEMOGLOBIN 30 pg (27-31); MEAN CORPUSCULAR HGB CONC 33 g/dL (33-37); MEAN CORPUSCULAR VOLUME 90.1 fL (80-94); MONOCYTES # (AUTO) 0.6 K/uL (0.8-1.0); MONOCYTES % (AUTO) 9.4 % (1.7-9.3); NEUTROPHILS # (AUTO) 4.3 K/uL (1.8-7.7); NEUTROPHILS % (AUTO) 68.2 % (42.2-75.2); PLATELET COUNT (AUTO) 219 K/uL (140-450); RED BLOOD CELL COUNT(AUTO) 3.26 MIL/uL (4.20-6.10); RED CELL DISTRIBUTION WIDTH 13.2 % (11.6-13.7); WHITE BLOOD COUNT (AUTO) 6.2 K/uL (4.8-10.8)
--- NOTE | 2020-03-01 07:15 | NUR ---
ENDORSED PT TO DAY SHIFT RN FOR CONTINUITY OF CARE.
--- NOTE | 2020-03-01 07:25 | NUR ---
RECEIVED PT REPORT FROM CREDIT REPORTER RN. PT IS ETT TO VENT, ACVC, FIO2 50%, TV 500, RR 12, PEEP 5. NO DISTRESS AT THIS TIME, RESPIRATION EVEN AND UNLABORED. LUNG SOUNDS CRACKLE UPON AUSCULTATION. PT SEDATED WITH PROPOFOL AND FENTANYL, RASS -2. PICC LINE TO THE RIGHT UPPER ARM INFUSING D5NS AT 50ML/HR AND ON PROPOFOL DRIP AT 20MCG/KG/MIN. DRY WEIGHT OF 136 KG. FENTANYL DRIP AT 6.8ML/HR. PT AWAKENS TO VOICE AND LIGHT TOUCH. ON BILATERAL SOFT RESTRAINTS, NO SIGHS OF INJURY. SKIN WARM DRY AND INTACT. LEFT FOOT FRACTURE WITH CAST ON. BUNDY CATH DRAINING LIGHT ANTONIETTA URINE WITH SEDIMENT. OGT IN PLACE, CONFIRM WITH AUSCULTATION, FEEDING ON HOLD DUE TO RESIDUAL. SIDE RAILS PADDED AND UP, BED IN LOWEST POSITION. HOB 30 DEG.
--- NOTE | 2020-03-01 07:49 | NUR ---
RECEIVED ON A HistoRxSCAPE R860 VENTILATOR PLUGGED INTO RED OUTLET TOLERATING WELL WITHOUT ADVERSE REACTIONS NOTED TO ENDOTRACHEAL TUBE #7.5 SECURED AT 24cm TEETH/GUM LINE WITH AN ANCHOR FAST CUFF PRESSURE CHECKED NOTED AMBU BAG AT BEDSIDE LOC SEDATED WITH PROPOFOL AT 20mcq RESPONSIVE TO STIMULI GOOD CHEST RISE BREATH SOUNDS LLL WHEEZE/RALES ALFRED LML RIGHT SIDE DECREASED ENDOTRACHEAL SUCTION FOR SMALL THICK YELLOW SECRETIONS AIRWAY PATENT MDI PRN THERAPY GIVEN SATURATION 99% ON FIO2 OF 50% POST MDI THERAPY TITRATED FIO2 TO 45% DANIELA/RN NOTIFIED
--- NOTE | 2020-03-01 08:00 | NUR ---
OGT RESIDUAL 10ML,RESUMED FEEDING, NEW TUBING AND FEEDING FORMULA BOTTLE. PT WAS TURNED AND REPOSITIONED. SKIN INTACT.
[2020-03-01] MEDS: TOPIRAMATE 100 MG TAB NG SCH (08:18)
[2020-03-01] MEDS: carBAMazepine 200 MG TAB PO SCH (08:19)
[2020-03-01] MEDS: FAMOTIDINE 20 MG/2 ML VIAL IV SCH (08:20)
[2020-03-01] MEDS: levETIRAcetam 1,000 MG in NACL 0.9% 100 ML IV SCH (09:33)
[2020-03-01] MEDS ORDERED: POTASSIUM CHLORIDE 20% 40 MEQ/15 ML UDC GT SCH (10:00)
[2020-03-01] MEDS: VANCOMYCIN 1,000 MG in DEXTROSE 5% 250 ML IV SCH ×2 (10:14→19:01)
--- NOTE | 2020-03-01 11:00 | NUR ---
ORAL CARE AND BUNDY CARE DONE.
[2020-03-01] MEDS: DEXT 5% /NACL 0.9% 1,000 ML IV SCH (11:35)
--- NOTE | 2020-03-01 12:55 | NUR ---
G TUBE RESIDUAL 60ML, TOLERATING FAIR.
--- NOTE | 2020-03-01 14:25 | NUR ---
TOOK PT TO CT SCAN FOR LEFT LEG.
--- NOTE | 2020-03-01 16:50 | NUR ---
PT COUGHED, YELLOW SECRETION CAME OUT OF THE MOUTH, SUCTIONED PT. O2 SAT STABLE.
--- NOTE | 2020-03-01 17:50 | NUR ---
REPORT GIVEN TO ANAYELI DEL CASTILLO. PT GOING TO [facility], ROOM 401A, ACCEPTING MD DR MARICEL BELLO. DISC, PROGRESS NOTES AND 24HR MEDICATION REPORT INCLUDED IN THE DC PACKET.
--- NOTE | 2020-03-01 19:05 | NUR ---
PT CHANGED IN ORANGE GOWN, FLUSHED G TUBE AND CLOSED TO PT. FEEDING OFF.
--- NOTE | 2020-03-01 19:29 | NUR ---
RECEIVED REPORT FROM AM SHIFT. PATIENT SEEN AND ASSESSED. PATIENT IS INTUBATED WITH ETT SIZE 7.5 AND SECURED WITH ANCHOR-FAST AT 24CM. AUSCULTATION REVEALS BILATERAL RALES BREATH SOUNDS. NOTICED ADEQUATE BILATERAL CHEST RISE AND FALL. PATIENT ON VENT SETTINGS AC/VC 12, 500, +5, 45% WITH SPO2 OF 96%. VENT PLUGGED IN RED OUTLET, HOB > 30 DEGREES, AMBU BAG AT BEDSIDE, AND ALARMS SET AND AUDIBLE. PATIENT IS IN NO APPARENT RESPIRATORY DISTRESS AT THIS TIME. PRN TX NOT INDICATED AT THIS TIME. SUCTION SMALL THAN THICK SECRETIONS FROM ETT. AIRWAY IS PATIENT. WILL CONTINUE TO MONITOR PATIENT.
--- NOTE | 2020-03-01 19:35 | NUR ---
REPORT GIVEN TO [facility]SPORT.
--- NOTE | 2020-03-01 20:01 | NUR ---
GAVE REPORT TO NURSE ON PATIENT VENT SETTINGS, SECRETIONS, PIP, AN PLT BEFORE PATIENT IS BEING SEND OUT.
--- NOTE | 2020-03-01 20:10 | NUR ---
[facility] HERE TO DIRECTOR ATHLETIC PATIENT TO TRANSFER TO [facility]. CRITICAL CARE NURSE REPORTS PATIENT IS HAVING SMALL SEIZURE EPISODE. PRN ATIVAN WAS GIVEN. PATIENT MORE STABLE, NOT SEIZING, VITALS STABLE. NO DISTRESS NOTED. SUCCESSFULLY TRANSFERRED TO [facility] WITH 3 PERSON [facility] TRANSPORT TEAM. PT D/C AT 2012.
== END 2020-03-01 20:13 | DRG 53 ==
LOC: EEVIPCON 09:20 → MED 09:20 → MIC 14:48
PROVIDERS: ADMIT Internal Medicine; ATTEND Internal Medicine
PROC: 5A1945Z Respiratory Ventilation, 24-96 Consecutive Hours (ICD-10-PCS; principal; 2020-02-26)
PROC: 0BH17EZ Insertion of Endotracheal Airway into Trachea, Via Natural or Artificial Opening (ICD-10-PCS; 2020-02-26)
PROC: 02HV33Z Insertion of Infusion Device into Superior Vena Cava, Percutaneous Approach (ICD-10-PCS; 2020-02-26)
DX: G40.901 Epilepsy, unspecified, not intractable, with status epilepticus (principal); J96.00 Acute respiratory failure, unspecified whether with hypoxia or hypercapnia; J69.0 Pneumonitis due to inhalation of food and vomit; G93.41 Metabolic encephalopathy; N17.9 Acute kidney failure, unspecified; E87.2 Acidosis; E66.01 Morbid (severe) obesity due to excess calories; Z68.41 Body mass index [BMI] 40.0-44.9, adult; Z79.82 Long term (current) use of aspirin; Z79.899 Other long term (current) drug therapy; I10 Essential (primary) hypertension; X58.XXXA Exposure to other specified factors, initial encounter; Y93.89 Activity, other specified; Y92.89 Other specified places as the place of occurrence of the external cause; Y99.8 Other external cause status; Z20.828 Contact with and (suspected) exposure to other viral communicable diseases; S92.315A Nondisplaced fracture of first metatarsal bone, left foot, initial encounter for closed fracture; S92.325A Nondisplaced fracture of second metatarsal bone, left foot, initial encounter for closed fracture; S92.335A Nondisplaced fracture of third metatarsal bone, left foot, initial encounter for closed fracture; S92.345A Nondisplaced fracture of fourth metatarsal bone, left foot, initial encounter for closed fracture
CPT/HCPCS: 36415; 36600; 51702; 70450; 71045; 73630; 73700; 80048; 80053; 80202; 80305; 81001; 82140; 82550; 82553; 82803; 83605; 83735; 84100; 84484; 85025; 87040; 87081; 87086; 93005; 94002; 94003; 96365; 96366; 96367; 96375; 99291; C1751; G0480; G0482; J1644; J1953; J2060; J2270; J2543; J2704; J3010; J3370; J3490; J7030; J7042; J7060; Q0092; U0003-CS